=== PATIENT | female | born 1935 | race Caucasian/White ===

== ENCOUNTER 2021-06-03 17:43 | Inpatient (IN) | payer MEDICARE, OTHER ==
[~2021-06-03] VITALS: Ht 162.6 cm; Wt 83.0 kg
--- NOTE | 2021-06-03 17:50 | NUR ---
TO ER BED 5, SENT BY PMD DUE TO ASTHMA EXACERBATION, ALBUTEROL GIVEN BEFORE ARRIVAL,CALM AND NOT IN RESPIRATORY DISTRESS, ATTACHED TO MONITOR, MD AT BEDSIDE FOR EVAL
[2021-06-03] MEDS ORDERED: ALBUTEROL FS 2.5 MG/3 ML VIAL.NEB ONE (18:00)
[2021-06-03] MEDS ORDERED: ALBUTEROL FS 2.5 MG/3 ML VIAL.NEB NEB ONE (18:00)
[2021-06-03] MEDS ORDERED: IPRATROPIUM NEB FS 0.5 MG/2.5 ML AMPUL.NEB NEB ONE (18:00)
[2021-06-03] MEDS ORDERED: methylPREDNISolone SOD SUCC 125 MG/2ML VIAL IV ONE (18:00)
[2021-06-03] MEDS ORDERED: IPRATROPIUM NEB FS 0.5 MG/2.5 ML AMPUL.NEB ONE (18:00)
--- NOTE | 2021-06-03 18:05 | NUR ---
RT AT BEDSIDE FOR BREATHING TREATMENT
[2021-06-03] MEDS ORDERED: methylPREDNISolone SOD SUCC 125 MG/2ML VIAL ONE (18:08)
--- NOTE | 2021-06-03 18:13 | NUR ---
COVID SWAB DONE AND SENT TO THE LAB
--- NOTE | 2021-06-03 18:14 | NUR ---
SAMPLER AND TEST PREPARER AT BEDSIDE
--- NOTE | 2021-06-03 18:17 | NUR ---
UNABLE TO GIVE URINE AT THIS TIME
[2021-06-03 18:20] LABS: BASOPHILS % (AUTO) 0.2 % (0.0-2.0); EOSINOPHILS % (AUTO) 0.1 % (0.0-6.0); HEMATOCRIT 35 % (33-45); HEMOGLOBIN 11.8 g/dL (11.5-14.8); LYMPHOCYTES # (AUTO) 2.1 K/uL (0.8-4.8); MEAN CORPUSCULAR HGB CONC 33 g/dl (31.0-36.0); MEAN CORPUSCULAR VOLUME 94 fL (82-100); MONOCYTES # (AUTO) 0.7 K/uL (0.1-1.30); NEUTROPHILS % (AUTO) 80.7 % (43.0-81.0); PLATELET COUNT (AUTO) 256 K/uL (150-450); RED BLOOD CELL COUNT(AUTO) 3.77 MIL/uL (4.0-5.2); WHITE BLOOD COUNT (AUTO) 14.9 K/uL (4.3-11.0)
--- NOTE | 2021-06-03 18:34 | NUR ---
AISLINN- DAUGHTER [phone]
[2021-06-03 18:36] LABS: CALCIUM, SERUM 8.1 mg/dL (8.5-10.1)
[2021-06-03 18:43] LABS: ALBUMIN 3.6 g/dL (3.4-5.0); BILIRUBIN,DIRECT 0.1 mg/dL (0.0-0.2); BILIRUBIN,TOTAL 0.2 mg/dL (0.2-1.0); TOTAL PROTEIN, SERUM 7.6 g/dL (6.4-8.2)
[2021-06-03] MEDS ORDERED: ASPI-1420 PO (19:14)
[2021-06-03] MEDS ORDERED: CHOL100062 PO (19:14)
[2021-06-03] MEDS ORDERED: ACET-2605 PO (19:14)
[2021-06-03] MEDS ORDERED: DOCU-141 PO (19:14)
[2021-06-03] MEDS ORDERED: LOPE2CAP14 PO (19:14)
[2021-06-03] MEDS ORDERED: GUAI100S11 PO (19:14)
[2021-06-03] MEDS ORDERED: SPIR25TA PO (19:14)
[2021-06-03] MEDS ORDERED: ONDA4TAB5 PO (19:14)
[2021-06-03] MEDS ORDERED: ATOR40TA PO (19:14)
[2021-06-03] MEDS ORDERED: INSU100V27 SQ (19:14)
[2021-06-03] MEDS ORDERED: INSU100V39 SQ (19:14)
[2021-06-03] MEDS ORDERED: BLOO-668 IN (19:14)
[2021-06-03] MEDS ORDERED: FAMO20TA8 PO (19:14)
[2021-06-03] MEDS ORDERED: NEBI10TA2 PO (19:14)
[2021-06-03] MEDS ORDERED: INSU100V7 SQ ×2 (19:14)
[2021-06-03] MEDS ORDERED: FLUT1BLS11 IH (19:14)
[2021-06-03] MEDS ORDERED: HYDR100T27 PO (19:14)
[2021-06-03] MEDS ORDERED: BENZ-13 PO (19:14)
[2021-06-03] MEDS ORDERED: POLY17PO4 PO (19:14)
[2021-06-03] MEDS ORDERED: FLUO60SO3 TP (19:14)
[2021-06-03] MEDS ORDERED: GLUC1KIT IM (19:14)
[2021-06-03] MEDS ORDERED: FURO40TA5 PO (19:14)
[2021-06-03] MEDS ORDERED: ALBU8.5H8 IH (19:14)
[2021-06-03] MEDS ORDERED: MECL-159 PO (19:14)
[2021-06-03] MEDS ORDERED: GLY/85CR TP (19:14)
[2021-06-03] MEDS ORDERED: MOME17SP (19:14)
[2021-06-03] MEDS ORDERED: POLY15DR40 EACHEYE (19:14)
[2021-06-03] MEDS ORDERED: ALBU1.257 IH (19:14)
[2021-06-03] MEDS ORDERED: MONT10TA22 PO (19:14)
[2021-06-03] MEDS ORDERED: OLME40TA12 PO (19:14)
[2021-06-03] MEDS ORDERED: METH5TAB70 PO (19:14)
[2021-06-03] MEDS ORDERED: NIFE-35 PO (19:14)
[2021-06-03] MEDS ORDERED: CARB100T51 PO (19:14)
--- NOTE | 2021-06-03 19:15 | NUR ---
CALLED [facility]. MOY TOBAR WAS PAGED.
[2021-06-03] MEDS ORDERED: LEVOFLOXACIN 750 MG /D5W 150ML 150 ML IV ONE ×2 (19:30→19:40)
[2021-06-03] MEDS ORDERED: ACETAMINOPHEN ES 500 MG TABLET PO PRN (21:30)
[2021-06-03] MEDS ORDERED: IV NS 0.9% 1,000 ML IV PRN (21:30)
[2021-06-03] MEDS ORDERED: ZOLPIDEM TARTRATE 5 MG TABLET PO PRN (21:30)
[2021-06-03] MEDS ORDERED: BENZONATATE 100 MG CAPSULE PO PRN (21:30)
[2021-06-03] MEDS ORDERED: ONDANSETRON HCL/PF 4 MG/2 ML VIAL IVP PRN (21:30)
[2021-06-03] MEDS ORDERED: MAG HYDROX/AL HYDROX/SIMETH 30 ML UDC PO PRN (21:30)
[2021-06-03] MEDS ORDERED: MAGNESIUM HYDROXIDE 30 ML UDC PO PRN (21:30)
[2021-06-03] MEDS ORDERED: DEXTROSE 50%-WATER 50 ML DISP.SYRIN IV PRN (21:30)
[2021-06-03] MEDS ORDERED: Z GUARD REMEDY 2 OZ OINT TP PRN (21:30)
[2021-06-03] MEDS: MOMETASONE FUROATE NASAL SUSP 17 GM BOTTLE SCH (22:00)
--- NOTE | 2021-06-03 22:21 | NUR ---
MARLENE FROM [facility] GIVES AUTH TO ADMIT AUTH NUMBER [id number].
--- NOTE | 2021-06-03 22:39 | NUR ---
TELE 106
--- NOTE | 2021-06-03 22:51 | NUR ---
called to give report nurse not ready and will call back
--- NOTE | 2021-06-03 23:02 | NUR ---
GAVE REPORT TO ROXANNE
--- NOTE | 2021-06-03 23:17 | NUR ---
PT TRANSFERED PER ACLS PROTOCOL
[2021-06-03] MEDS ORDERED: ALBUTEROL FS 2.5 MG/3 ML VIAL.NEB NEB PRN (23:45)
[2021-06-04] MEDS: ACETYLCYSTEINE 10% SOLN 400 MG/4 ML VIAL NEB SCH ×3 (00:36→14:48)
[2021-06-04] MEDS: IPRATROPIUM NEB FS 0.5 MG/2.5 ML AMPUL.NEB NEB SCH ×4 (00:36→19:30)
[2021-06-04] MEDS: ALBUTEROL FS 2.5 MG/3 ML VIAL.NEB NEB SCH ×4 (00:36→20:12)
[2021-06-04] MEDS: methylPREDNISolone SOD SUCC 40 MG/ML VIAL IV SCH ×5 (00:57→23:01)
[2021-06-04] MEDS: BLOOD SUGAR DIAGNOSTIC 1 EACH STRIP VI SCH ×5 (01:02→21:15)
[2021-06-04] MEDS: *INSULIN REGULAR(HUMULIN R)HUM 100 UNIT/ML VIAL SQ PRN ×2 (01:08→21:16)
[2021-06-04] MEDS: ENOXAPARIN SODIUM 40 MG/0.4 ML DISP.SYRIN SQ SCH ×2 (01:16→21:01)
[2021-06-04] MEDS: ATORVASTATIN 40 MG TABLET PO SCH ×2 (01:17→21:00)
[2021-06-04] MEDS ORDERED: hydrALAZINE HCL 50 MG TABLET ONE (05:11)
[2021-06-04] MEDS: hydrALAZINE HCL 50 MG TABLET PO SCH ×3 (05:20→16:21)
--- NOTE | 2021-06-04 05:21 | NUR ---
called vida TOBAR made aware pts B/P 188/65 hr 90 patient states she didn't take her blood pressure yesterday stated it was ikat to give the AM 9:00 Apresoline 100 mg early (now)
--- NOTE | 2021-06-04 06:20 | NUR ---
with assist will use the bedside commode, freq voids SOB when getting OOB and movement calms down when stops to rest 02 at 2 liters sats 90 - 93% Blood pressure running High called Moniciamee K[place]omin[place] and apresoline 100 mg given early this AM
[2021-06-04 06:38] LABS: BASOPHILS % (AUTO) 0.1 % (0.0-2.0); HEMATOCRIT 35 % (33-45); HEMOGLOBIN 11.7 g/dL (11.5-14.8); LYMPHOCYTES # (AUTO) 1.2 K/uL (0.8-4.8); LYMPHOCYTES % (AUTO) 7.8 % (20.0-44.0); MEAN CORPUSCULAR HGB CONC 34 g/dl (31.0-36.0); MEAN CORPUSCULAR VOLUME 94 fL (82-100); MONOCYTES # (AUTO) 0.4 K/uL (0.1-1.30); MONOCYTES % (AUTO) 2.6 % (2.0-12.0); NEUTROPHILS # (AUTO) 13.4 K/uL (1.8-8.9); NEUTROPHILS % (AUTO) 89.5 % (43.0-81.0); PLATELET COUNT (AUTO) 240 K/uL (150-450); RED BLOOD CELL COUNT(AUTO) 3.72 MIL/uL (4.0-5.2); WHITE BLOOD COUNT (AUTO) 14.9 K/uL (4.3-11.0)
[2021-06-04 07:10] LABS: CALCIUM, SERUM 8.6 mg/dL (8.5-10.1); CREATININE 0.9 mg/dL (0.6-1.3); MAGNESIUM 2.4 mg/dL (1.8-2.4); PHOSPHORUS 3.5 mg/dL (2.5-4.9); POTASSIUM 4.1 mmol/L (3.5-5.1)
[2021-06-04 08:00] VITALS: BP 165/83
--- NOTE | 2021-06-04 08:00 | NUR ---
LICENSED PROFESSIONAL COUNSELOR NOTE PATIENT IN BED ALL NEEDS ATTENDED,ON 4L NC SATURATION 93% AT THIS TIME, LT HAND HL IS SWOLLEN REMOVED HL KEEP ELEVATED , REPORTED TO DR PINEDA ALSO NOTOFIED THAT PATENT IS VERY CONGESTED ,ORDERED 40 MG PO LASIX NOW AND LATTER WHEN IV HL WILL BE AVAILABLE LASIX IV Addendum: 06/04/21 at 1354 by BENJMAÍN FRANCISCO RN received patient on ivf ns at 75 ml per hour reported to dr jina arboleda is very congested
--- NOTE | 2021-06-04 08:05 | NUR ---
ms rn note ivf stopped due to patient is very congested ok with nilo muro
[2021-06-04] MEDS ORDERED: CLONIDINE HCL 0.1 MG TABLET PO PRN (08:30)
--- NOTE | 2021-06-04 08:38 | NUR ---
RN NOTE PATIENT IN BED WITH SOB NOTED WITH CHEST CONGESTED Addendum: 06/04/21 at 1350 by BENJAMÍN FRANCISCO RN dr copeland at bedside notified that patient very congested,stated cont on 4l nc
[2021-06-04] MEDS: CHOLECALCIFEROL 1,000 UNIT TABLET (VIT D3) PO SCH (08:49)
[2021-06-04] MEDS: MONTELUKAST SODIUM (10MG) 10 MG TABLET PO SCH (08:50)
[2021-06-04] MEDS: FAMOTIDINE (20 MG) 20 MG TABLET PO SCH (08:50)
[2021-06-04] MEDS: LOSARTAN POTASSIUM 50 MG TABLET PO SCH (08:52)
[2021-06-04] MEDS: METOPROLOL TARTRATE 50 MG TABLET PO SCH ×2 (08:53→20:58)
[2021-06-04] MEDS: ASPIRIN EC 81 MG TABLET.DR PO SCH (08:54)
[2021-06-04] MEDS: DOCUSATE SODIUM 100 MG CAPSULE PO SCH ×2 (08:55→16:21)
[2021-06-04] MEDS: POLYVINYL ALCOHOL 15 ML BOTTLE OP SCH ×4 (08:56→20:59)
[2021-06-04] MEDS: POLYETHYLENE GLYCOL 3350 17 GM POWD.PACK PO SCH (08:56)
[2021-06-04] MEDS: NIFEdipine XL (30MG) 30 MG TAB PO SCH (08:56)
[2021-06-04] MEDS ORDERED: FLUOCINONIDE 0.05% SOLN 60 ML BOTTLE TP SCH (09:00)
[2021-06-04] MEDS ORDERED: FLUTICASONE/SALMETEROL 1 DISK IH SCH (09:00)
[2021-06-04] MEDS ORDERED: FLUTICASONE/VILANTEROL 1 EACH BLST.W.DEV IH SCH (09:00)
[2021-06-04] MEDS ORDERED: FUROSEMIDE 40 MG TABLET PO ONE (09:00)
[2021-06-04] MEDS ORDERED: CARBAMAZEPINE XR 100 MG TAB.SR.12H PO SCH (09:00)
--- NOTE | 2021-06-04 09:00 | NUR ---
ms rn note unable to insert iv hl .patient hard stick ,nursing supervisor carding notified that per dr jina knowles to insert mid line
[2021-06-04] MEDS: METHIMAZOLE (5MG) 5 MG TABLET PO SCH (09:02)
[2021-06-04] MEDS: INSULIN GLARGINE, 100 UNIT/ML CARTRIDGE SQ SCH (09:05)
[2021-06-04] MEDS: INSULIN REGULAR, HUMAN 100 UNIT/ML 3 ML VIAL SQ PRN ×3 (09:07→16:44)
[2021-06-04] MEDS ORDERED: GUAIFENESIN LA 600 MG TABLET.SA PO SCH (10:00)
--- NOTE | 2021-06-04 10:07 | NUR ---
WOUND CARE CONSULT: REVIEWED CHART, NURSING DOCUMENTATION AND PHOTOS WHICH INDICATE LOWER LEG REDNESS WITH WEEPING EDEMA, PRESENT ON ADMISSION. DR GOMES NOTIFIED OF DPM CONSULT REQUEST. RECOMMENDATIONS MADE FOR SKIN PROTECTION. DISCUSSED WITH NURSING STAFF. IN AGREEMENT WITH PLAN OF CARE. CURRENT JHONATHAN SCORE IS 17.
[2021-06-04] MEDS ORDERED: FUROSEMIDE 40 MG/4 ML VIAL IV STA (10:37)
--- NOTE | 2021-06-04 10:55 | NUR ---
MS RN NOTE LASIX 40 MG IBP GIVEN ,CHEST X RAY DONE
--- NOTE | 2021-06-04 10:55 | NUR ---
ms rn note charge nurse at bedside, able to insert rt hand severiano 24 hl
[2021-06-04] MEDS ORDERED: ALBUTEROL FS 2.5 MG/3 ML VIAL.NEB NEB PRN (11:30)
--- NOTE | 2021-06-04 13:14 | NUR ---
telesales representative note assisted to bsc, urinted 1200 ml of yellow clear urine, mid line inserted on lt arm ,gage18
--- NOTE | 2021-06-04 14:51 | NUR ---
MS RN NOTE ASSISTED TO BSC ABLE TO MAKE BM AND URINATE 300 ML, WILL CONT TO MONITOR
[2021-06-04 16:03] VITALS: BP 152/87
--- NOTE | 2021-06-04 17:20 | NUR ---
ms rn note having dinner , able to eat self , all needs attended, call light within reach
--- NOTE | 2021-06-04 18:57 | NUR ---
MS RN NOTE RESTING COMFORTABLY IN BED ALL NEEDS ATTENDED KEEP CLEAN DRY , WILL CONT TO MONITOR , CONT ON 4L NC NO SOB NOTED AT THIS TIME
--- NOTE | 2021-06-04 19:45 | NUR ---
RN NOTE RECEIVED PT ALERT AND ORIENTED X4. ON O2 AT 4L. NO SIGNS OF DISTRESS NOTED. PT DENIES ANY SOB OR PAIN. HOB ELEVATED. PT IV ON RHAND AND ERROL MIDLINE PATENT AND INTACT. ALL SAFETY MEASURES IN PLACE PER PROTOCOL. WILL CONTINUE TO MONITOR.
[2021-06-04 20:00] VITALS: BP 164/76
[2021-06-04] MEDS: CARBAMAZEPINE 200 MG TABLET PO SCH (20:58)
[2021-06-04] MEDS: MOMETASONE FUROATE NASAL SUSP 17 GM BOTTLE SCH (21:01)
--- NOTE | 2021-06-04 22:00 | NUR ---
RN NOTE PT COMPLAINS OF SOB. NO APPARENT DISTRESS NOTED. ON O2 AT 4L SATING 94-95%. PT NOT RECEIVING ANY BREATHING TX DUE TO PCR STILL PENDING. BRATTICE BUILDER RADHA BEVERLY NOTIFIED. WITH NEW ORDER OF ALBUTEROL PUFF. PT REFUSED TO HAVE THE ALBUTEROL PUFF. KEPT HOB ELEVATED. WILL CONTINUE TO MONITOR.
[2021-06-05 04:00] VITALS: BP 132/86
[2021-06-05] MEDS: ALBUTEROL FS 2.5 MG/3 ML VIAL.NEB NEB SCH ×4 (04:37→21:00)
[2021-06-05] MEDS: IPRATROPIUM NEB FS 0.5 MG/2.5 ML AMPUL.NEB NEB SCH ×6 (04:37→22:39)
[2021-06-05] MEDS: methylPREDNISolone SOD SUCC 40 MG/ML VIAL IV SCH ×4 (05:26→23:08)
--- NOTE | 2021-06-05 06:55 | NUR ---
RN NOTE PT AWAKE IN BED, CONTINUE ON 4L O2. WITH EPISODES OF SOB, KEPT HOB ELEVATED. PT NOTED WITH PRODUCTIVE COUGH WITH MINIMAL SECRETIONS. NOT IN ANY DISTRESS. DENIES ANY PAIN AT THIS TIME. PT CONTINENT, ASSISTED TO BEDSIDE COMMODE. ALL NEEDS ATTENDED. ON FREQUENT VISUAL CHECKS. ALL SAFETY MEASURES MAINTAINED. WILL ENDORSE TO NEXT SHIFT NURSE FOR YASIR.
[2021-06-05] MEDS: ACETYLCYSTEINE 10% SOLN 400 MG/4 ML VIAL NEB SCH ×3 (07:35→22:40)
[2021-06-05] MEDS: BLOOD SUGAR DIAGNOSTIC 1 EACH STRIP VI SCH ×4 (07:37→22:05)
[2021-06-05] MEDS: *INSULIN REGULAR(HUMULIN R)HUM 100 UNIT/ML VIAL SQ PRN ×2 (07:55→21:59)
[2021-06-05] MEDS: METHIMAZOLE (5MG) 5 MG TABLET PO SCH (08:15)
[2021-06-05] MEDS: LEVOFLOXACIN 750 MG /D5W 150ML 750 MG in PREMIX 1 EA IV SCH (08:15)
[2021-06-05] MEDS: CHOLECALCIFEROL 1,000 UNIT TABLET (VIT D3) PO SCH (08:16)
[2021-06-05] MEDS: ASPIRIN EC 81 MG TABLET.DR PO SCH (08:16)
[2021-06-05] MEDS: DOCUSATE SODIUM 100 MG CAPSULE PO SCH ×2 (08:16→17:03)
[2021-06-05] MEDS: FAMOTIDINE (20 MG) 20 MG TABLET PO SCH (08:17)
[2021-06-05] MEDS: NIFEdipine XL (30MG) 30 MG TAB PO SCH (08:17)
[2021-06-05] MEDS: METOPROLOL TARTRATE 50 MG TABLET PO SCH ×2 (08:18→21:44)
[2021-06-05] MEDS: LOSARTAN POTASSIUM 50 MG TABLET PO SCH (08:18)
[2021-06-05] MEDS: MONTELUKAST SODIUM (10MG) 10 MG TABLET PO SCH (08:18)
[2021-06-05] MEDS: POLYETHYLENE GLYCOL 3350 17 GM POWD.PACK PO SCH ×2 (08:18→09:00)
[2021-06-05] MEDS: hydrALAZINE HCL 50 MG TABLET PO SCH ×3 (08:19→17:04)
[2021-06-05] MEDS: INSULIN GLARGINE, 100 UNIT/ML CARTRIDGE SQ SCH (08:53)
[2021-06-05] MEDS: CARBAMAZEPINE 200 MG TABLET PO SCH ×2 (08:53→21:38)
[2021-06-05] MEDS: POLYVINYL ALCOHOL 15 ML BOTTLE OP SCH ×4 (08:55→21:45)
[2021-06-05 09:50] LABS: BASOPHILS % (AUTO) 0.1 % (0.0-2.0); HEMATOCRIT 38 % (33-45); HEMOGLOBIN 12.4 g/dL (11.5-14.8); LYMPHOCYTES # (AUTO) 1.4 K/uL (0.8-4.8); LYMPHOCYTES % (AUTO) 7.6 % (20.0-44.0); MEAN CORPUSCULAR HGB CONC 33 g/dl (31.0-36.0); MEAN CORPUSCULAR VOLUME 95 fL (82-100); MONOCYTES # (AUTO) 0.9 K/uL (0.1-1.30); MONOCYTES % (AUTO) 4.9 % (2.0-12.0); NEUTROPHILS # (AUTO) 16.8 K/uL (1.8-8.9); NEUTROPHILS % (AUTO) 87.4 % (43.0-81.0); PLATELET COUNT (AUTO) 267 K/uL (150-450); WHITE BLOOD COUNT (AUTO) 19.2 K/uL (4.3-11.0)
[2021-06-05 10:17] LABS: CALCIUM, SERUM 8.9 mg/dL (8.5-10.1); CREATININE 1.2 mg/dL (0.6-1.3); MAGNESIUM 2.6 mg/dL (1.8-2.4); POTASSIUM 3.9 mmol/L (3.5-5.1)
[2021-06-05] MEDS: INSULIN REGULAR, HUMAN 100 UNIT/ML 3 ML VIAL SQ PRN ×2 (11:49→17:26)
[2021-06-05 12:00] VITALS: BP 187/76
[2021-06-05] MEDS: ALBUTEROL SULFATE 8 GM HFA.AER.AD IH PRN ×2 (13:53→22:30)
[2021-06-05 16:00] VITALS: BP 166/64
--- NOTE | 2021-06-05 18:46 | NUR ---
RN NOTES PT RESTING COMFORTABLY IN BED WITH NO S/SX OF RESPIRATORY OR SOB AT THIS TIME. PT IS ON 4L NASAL CANNULA. ALL NEEDS ATTENDED AT THIS TIME WITH BED IN LOWEST LOCKED POSITION, SIDE RAILS UP X2 AND CALL LIGHT WITHIN REACH.
[2021-06-05 20:00] VITALS: BP 157/60
--- NOTE | 2021-06-05 20:00 | NUR ---
RN NOTE RECEIVED PT IN BED, AWAKE WATCHING TV. ALERT AND ORIENTED X4. ON 4L NC. COMPLAINS OF SOB, NO DISTRESS NOTED. KEPT HOB ELEVATED. NOTED WITH COUGHING AND CONGESTION, OFFERED COUGH MED PT REFUSED. PT CONTINENT, ASSISTED TO BEDSIDE COMMODE. PT DENIES ANY PAIN AT THIS TIME. ALL SAFETY MEASURES IN PLACE. WILL CONTINUE TO MONITOR.
--- NOTE | 2021-06-05 20:12 | NUR ---
RT neb tx not given. pending pcr.
--- NOTE | 2021-06-05 21:00 | NUR ---
RN NOTE PT PCR STILL PENDING, FOLLOWED UP WITH LAB, NO RESULTS YET. PT SON CONCERNED REGARDING BREATHING TREATMENT HOLDING. EXPLAINED, PT GETTING INH ALBUTEROL PUFF. WASH OPERATOR RADHA BEVERLY MADE AWARE.
[2021-06-05] MEDS: ATORVASTATIN 40 MG TABLET PO SCH (21:38)
[2021-06-05] MEDS: ENOXAPARIN SODIUM 40 MG/0.4 ML DISP.SYRIN SQ SCH (21:43)
[2021-06-05] MEDS: MOMETASONE FUROATE NASAL SUSP 17 GM BOTTLE SCH (21:46)
[2021-06-06] MEDS: ALBUTEROL FS 2.5 MG/3 ML VIAL.NEB NEB SCH ×6 (01:00→23:51)
[2021-06-06] MEDS: ALBUTEROL SULFATE 8 GM HFA.AER.AD IH PRN ×2 (02:47→06:49)
[2021-06-06] MEDS: IPRATROPIUM NEB FS 0.5 MG/2.5 ML AMPUL.NEB NEB SCH ×6 (03:30→23:51)
[2021-06-06 04:00] VITALS: BP 168/66
--- NOTE | 2021-06-06 04:16 | NUR ---
RN NOTE NOTED WITH ELEVATED BP 168/66. PT DENIES ANY PAIN. NO DISTRESS NOTED. CLONIDINE 0.1MG GIVEN ORDERED. WILL CONTINUE TO MONITOR.
[2021-06-06] MEDS: methylPREDNISolone SOD SUCC 40 MG/ML VIAL IV SCH ×3 (05:14→17:11)
[2021-06-06 06:14] LABS: BASOPHILS % (AUTO) 0.2 % (0.0-2.0); HEMATOCRIT 34 % (33-45); HEMOGLOBIN 11.4 g/dL (11.5-14.8); LYMPHOCYTES # (AUTO) 1.4 K/uL (0.8-4.8); MEAN CORPUSCULAR HGB CONC 33 g/dl (31.0-36.0); MEAN CORPUSCULAR VOLUME 95 fL (82-100); MONOCYTES # (AUTO) 0.8 K/uL (0.1-1.30); MONOCYTES % (AUTO) 5.9 % (2.0-12.0); NEUTROPHILS % (AUTO) 83.9 % (43.0-81.0); PLATELET COUNT (AUTO) 260 K/uL (150-450); RED BLOOD CELL COUNT(AUTO) 3.63 MIL/uL (4.0-5.2); WHITE BLOOD COUNT (AUTO) 14.3 K/uL (4.3-11.0)
--- NOTE | 2021-06-06 07:10 | NUR ---
RN NOTES NO SIGNIFICANT CHANGES DURING SHIFT. PATIENT AOX4. ABLE TO MAKE NEEDS KNOWN. BREATHING EVEN AND UNLABORED. EPISODE OF SOB AND CONGESTION NOTED. NO DISTRESS. ALBUTEROL PUFF GIVEN NEEDED. SKIN WARM AND DRY TO TOUCH. AFEBRILE. PATIENT WITH IV ACCESS ON WILLIAMS. PATENT, NO S/S OF INFECTION NOTED. BLOOD PRESSURE DECREASED TO 140/70. DENIES PAIN AT THIS TIME. ASSISTED ADL'S. KEPT CLEAN AND DRY. CALL LIGHT WITHIN REACH. WILL ENDORSE TO NEXT SHIFT.
[2021-06-06 07:24] LABS: CALCIUM, SERUM 8.7 mg/dL (8.5-10.1); CREATININE 1.1 mg/dL (0.6-1.3); MAGNESIUM 2.7 mg/dL (1.8-2.4); PHOSPHORUS 3.7 mg/dL (2.5-4.9); POTASSIUM 4.2 mmol/L (3.5-5.1)
[2021-06-06] MEDS: BLOOD SUGAR DIAGNOSTIC 1 EACH STRIP VI SCH ×4 (07:52→22:09)
[2021-06-06] MEDS: INSULIN GLARGINE, 100 UNIT/ML CARTRIDGE SQ SCH (08:14)
[2021-06-06] MEDS: INSULIN REGULAR, HUMAN 100 UNIT/ML 3 ML VIAL SQ PRN ×3 (08:15→17:16)
[2021-06-06] MEDS: METHIMAZOLE (5MG) 5 MG TABLET PO SCH (08:16)
[2021-06-06] MEDS: LOSARTAN POTASSIUM 50 MG TABLET PO SCH (08:17)
[2021-06-06] MEDS: ASPIRIN EC 81 MG TABLET.DR PO SCH (08:18)
[2021-06-06] MEDS: hydrALAZINE HCL 50 MG TABLET PO SCH ×3 (08:18→17:11)
[2021-06-06] MEDS: DOCUSATE SODIUM 100 MG CAPSULE PO SCH ×2 (08:18→17:10)
[2021-06-06] MEDS: FAMOTIDINE (20 MG) 20 MG TABLET PO SCH (08:19)
[2021-06-06] MEDS: CHOLECALCIFEROL 1,000 UNIT TABLET (VIT D3) PO SCH (08:19)
[2021-06-06] MEDS: CARBAMAZEPINE 200 MG TABLET PO SCH ×2 (08:19→21:38)
[2021-06-06] MEDS: NIFEdipine XL (30MG) 30 MG TAB PO SCH (08:19)
[2021-06-06] MEDS: MONTELUKAST SODIUM (10MG) 10 MG TABLET PO SCH (08:19)
[2021-06-06] MEDS: METOPROLOL TARTRATE 50 MG TABLET PO SCH ×2 (08:20→21:00)
[2021-06-06] MEDS: POLYVINYL ALCOHOL 15 ML BOTTLE OP SCH ×4 (08:20→21:56)
[2021-06-06] MEDS: POLYETHYLENE GLYCOL 3350 17 GM POWD.PACK PO SCH (09:00)
[2021-06-06] MEDS: GLUCERNA SHAKE 237 ML CAN PO SCH (09:00)
[2021-06-06] MEDS: ACETYLCYSTEINE 10% SOLN 400 MG/4 ML VIAL NEB SCH ×3 (09:16→23:51)
[2021-06-06 10:00] VITALS: BP 161/85
[2021-06-06 12:00] VITALS: BP 173/65
[2021-06-06 16:00] VITALS: BP 157/46
--- NOTE | 2021-06-06 18:27 | NUR ---
RN NOTES NO SIGNIFICANT CHANGES DURING SHIFT. PT RECEIVED NEBULIZER TX AT 1130 AFTER CONFIRMED NEGATIVE COVID PCR RESULTS CAME IN. PT AMBULATED TO THE BATHROOM AND SAT IN CHAIR AT BEDSIDE. PT RESTING COMFORTABLY IN BED IN HIGH FOWLERS POSITION ON 3L NASAL CANULA. SAFETY MEASURES IN PLACE WITH SIDE RAILS UP X2, BED IN LOWEST LOCKED POSITION AND CALL LIGHT WITHIN REACH.
[2021-06-06 20:00] VITALS: BP 91/43
--- NOTE | 2021-06-06 20:00 | NUR ---
ms rn notes RECEIVED PTS IN BED IN SEMI FOWLERS POSITION . A/OX4. ABLE TO MAKE NEEDS KNOWN.ON O2 AT 4LITERS VIA NC SATING 93% BREATHING EVEN AND UNLABORED. NO DISTRESS. SKIN WARM AND DRY TO TOUCH. PATIENT WITH IV ACCESS ON WILLIAMS.ML INTACT PATENT, DENIES PAIN AT THIS TIME. ALL NEEDS ATTENDED TOO CALL LIGHT WITHIN REACH . ASSISTED ADL'S. KEPT CLEAN AND DRY. CALL LIGHT WITHIN REACH. BED IN LOW LOCKED POSITIONED ,WILL CONTINUE TO MONITOR PTS.
--- NOTE | 2021-06-06 21:30 | NUR ---
MS RN NOTES DUE MEDS GIVEN ORDERED LOPRESSOR NOT GIVEN DUE BLOOD PRESSURE 91/43 , WILL CONTINUE TO MONITOR PTS RECHECK BP AT 11PM BP 105/55
[2021-06-06] MEDS: ATORVASTATIN 40 MG TABLET PO SCH (21:38)
[2021-06-06] MEDS: ACETAMINOPHEN 325 MG TABLET PO PRN (21:38)
[2021-06-06] MEDS: ENOXAPARIN SODIUM 40 MG/0.4 ML DISP.SYRIN SQ SCH (21:55)
[2021-06-06] MEDS: MOMETASONE FUROATE NASAL SUSP 17 GM BOTTLE SCH (21:59)
--- NOTE | 2021-06-06 22:00 | NUR ---
MS RN NOTES BLOOD SUGAR AT 10PM IS 407 MG/DL 10 UNITS OF REGULAR INSULIN GIVE PER SLIDING SCALE MD WASHINGTON MADE AWARE WITH NNO . PTS IS CURRENTLY ON SOLUMEDROL 80MG Q 6HRS WILL CHECK BLOOD SUGAR IN AM .
[2021-06-06] MEDS: *INSULIN REGULAR(HUMULIN R)HUM 100 UNIT/ML VIAL SQ PRN (22:07)
[2021-06-07] MEDS: methylPREDNISolone SOD SUCC 40 MG/ML VIAL IV SCH ×5 (01:33→23:58)
[2021-06-07] MEDS: ALBUTEROL FS 2.5 MG/3 ML VIAL.NEB NEB SCH ×6 (03:22→23:03)
[2021-06-07] MEDS: IPRATROPIUM NEB FS 0.5 MG/2.5 ML AMPUL.NEB NEB SCH ×6 (03:22→23:03)
[2021-06-07 04:00] VITALS: BP 116/59
[2021-06-07] MEDS: ACETAMINOPHEN 325 MG TABLET PO PRN (06:31)
[2021-06-07 06:54] LABS: BASOPHILS % (AUTO) 0.1 % (0.0-2.0); HEMATOCRIT 35 % (33-45); HEMOGLOBIN 11.8 g/dL (11.5-14.8); LYMPHOCYTES # (AUTO) 0.9 K/uL (0.8-4.8); LYMPHOCYTES % (AUTO) 9.6 % (20.0-44.0); MEAN CORPUSCULAR HGB CONC 34 g/dl (31.0-36.0); MEAN CORPUSCULAR VOLUME 95 fL (82-100); MONOCYTES # (AUTO) 0.6 K/uL (0.1-1.30); MONOCYTES % (AUTO) 6.3 % (2.0-12.0); NEUTROPHILS # (AUTO) 7.8 K/uL (1.8-8.9); PLATELET COUNT (AUTO) 234 K/uL (150-450); RED BLOOD CELL COUNT(AUTO) 3.71 MIL/uL (4.0-5.2); WHITE BLOOD COUNT (AUTO) 9.2 K/uL (4.3-11.0)
[2021-06-07 07:12] LABS: CALCIUM, SERUM 8.6 mg/dL (8.5-10.1); CREATININE 1.2 mg/dL (0.6-1.3); PHOSPHORUS 3.6 mg/dL (2.5-4.9); POTASSIUM 4.2 mmol/L (3.5-5.1)
--- NOTE | 2021-06-07 07:15 | NUR ---
ms rn notes Pts is sitting in the chair at this time .no c/o of pain no sob noted .will endorse to [employer] [facility] day shift for continuity of care.
[2021-06-07] MEDS: BLOOD SUGAR DIAGNOSTIC 1 EACH STRIP VI SCH ×4 (07:34→21:33)
[2021-06-07] MEDS: INSULIN REGULAR, HUMAN 100 UNIT/ML 3 ML VIAL SQ PRN ×4 (07:35→17:36)
[2021-06-07 08:00] VITALS: BP 155/63
[2021-06-07] MEDS: FAMOTIDINE (20 MG) 20 MG TABLET PO SCH (08:10)
[2021-06-07] MEDS: LEVOFLOXACIN 750 MG /D5W 150ML 750 MG in PREMIX 1 EA IV SCH (08:10)
[2021-06-07] MEDS: MONTELUKAST SODIUM (10MG) 10 MG TABLET PO SCH (08:10)
[2021-06-07] MEDS: ASPIRIN EC 81 MG TABLET.DR PO SCH (08:11)
[2021-06-07] MEDS: hydrALAZINE HCL 50 MG TABLET PO SCH ×3 (08:11→17:37)
[2021-06-07] MEDS: LOSARTAN POTASSIUM 50 MG TABLET PO SCH (08:11)
[2021-06-07] MEDS: CHOLECALCIFEROL 1,000 UNIT TABLET (VIT D3) PO SCH (08:11)
[2021-06-07] MEDS: NIFEdipine XL (30MG) 30 MG TAB PO SCH (08:12)
[2021-06-07] MEDS: DOCUSATE SODIUM 100 MG CAPSULE PO SCH ×2 (08:12→17:37)
[2021-06-07] MEDS: CARBAMAZEPINE 200 MG TABLET PO SCH ×2 (08:12→21:16)
[2021-06-07] MEDS: METOPROLOL TARTRATE 50 MG TABLET PO SCH ×2 (08:12→21:16)
[2021-06-07] MEDS: METHIMAZOLE (5MG) 5 MG TABLET PO SCH (08:12)
[2021-06-07] MEDS: POLYETHYLENE GLYCOL 3350 17 GM POWD.PACK PO SCH (08:13)
[2021-06-07] MEDS: INSULIN GLARGINE, 100 UNIT/ML CARTRIDGE SQ SCH ×2 (08:13→21:35)
[2021-06-07] MEDS: ACETYLCYSTEINE 10% SOLN 400 MG/4 ML VIAL NEB SCH ×3 (08:21→23:03)
[2021-06-07] MEDS: POLYVINYL ALCOHOL 15 ML BOTTLE OP SCH ×4 (08:31→21:29)
[2021-06-07] MEDS: GLUCERNA SHAKE 237 ML CAN PO SCH (08:31)
--- NOTE | 2021-06-07 12:00 | NUR ---
KRISTIE NOTES CRITICAL GLUCOSE OF 516. NOTIFIED AND STAT GLUCOSE ORDERED. Addendum: 06/07/21 at 1905 by CATHY HANCOCK RN CRITICAL VALUE OF RANDOM GLUCOSE 559. NOTIFIED AND ORDERED ADDITIONAL COVERAGE. ONE TIME 16 UNITS HUMILIN GIVEN @1330 Addendum: 06/07/21 at 1935 by CATHY HANCOCK RN CORRECTION - ONE TIME DOSE HUMILIN INSULIN GIVE FOR POC GLUCOSE OF 516 WAS 16 UNITS. AFTER RANDOM GLUCOSE OF 559 ADDITIONAL COVERAGE OF 20UNITS HUMILIN INSULIN GIVEN PER DR. PINEDA.
[2021-06-07] MEDS ORDERED: INSULIN REGULAR, HUMAN 100 UNIT/ML 3 ML VIAL SQ ONE (14:30)
[2021-06-07 20:00] VITALS: BP 143/41
--- NOTE | 2021-06-07 20:00 | NUR ---
RN NOTE RECEIVED PT IN BED ALERT AND ORIENTED, ON O2 AT 4L. NOT IN ANY DISTRESS. PT DENIES ANY SOB OR PAIN AT THIS TIME. HOB ELEVATED. PT ABLE TO MAKE NEEDS KNOWN. WITH WILLIAMS MIDLINE, PATENT AND INTACT. WILL CONTINUE TO MONITOR. CALL LIGHT WITHIN REACH.
[2021-06-07] MEDS: ATORVASTATIN 40 MG TABLET PO SCH (21:16)
[2021-06-07] MEDS: ENOXAPARIN SODIUM 40 MG/0.4 ML DISP.SYRIN SQ SCH (21:17)
[2021-06-07] MEDS: MOMETASONE FUROATE NASAL SUSP 17 GM BOTTLE SCH (21:28)
[2021-06-07] MEDS: *INSULIN REGULAR(HUMULIN R)HUM 100 UNIT/ML VIAL SQ PRN (21:38)
[2021-06-08] MEDS: ALBUTEROL FS 2.5 MG/3 ML VIAL.NEB NEB SCH ×6 (03:02→23:36)
[2021-06-08] MEDS: IPRATROPIUM NEB FS 0.5 MG/2.5 ML AMPUL.NEB NEB SCH ×6 (03:02→23:36)
[2021-06-08 04:00] VITALS: BP 148/68
[2021-06-08] MEDS: methylPREDNISolone SOD SUCC 40 MG/ML VIAL IV SCH ×3 (05:45→17:17)
[2021-06-08 06:27] LABS: BASOPHILS % (AUTO) 0.1 % (0.0-2.0); HEMATOCRIT 36 % (33-45); LYMPHOCYTES # (AUTO) 1.2 K/uL (0.8-4.8); LYMPHOCYTES % (AUTO) 12.9 % (20.0-44.0); MEAN CORPUSCULAR HGB CONC 34 g/dl (31.0-36.0); MEAN CORPUSCULAR VOLUME 95 fL (82-100); MONOCYTES # (AUTO) 0.6 K/uL (0.1-1.30); MONOCYTES % (AUTO) 5.9 % (2.0-12.0); NEUTROPHILS # (AUTO) 7.7 K/uL (1.8-8.9); NEUTROPHILS % (AUTO) 81.1 % (43.0-81.0); PLATELET COUNT (AUTO) 238 K/uL (150-450); RED BLOOD CELL COUNT(AUTO) 3.78 MIL/uL (4.0-5.2); WHITE BLOOD COUNT (AUTO) 9.5 K/uL (4.3-11.0)
--- NOTE | 2021-06-08 06:30 | NUR ---
RN NOTE PT SLEEPING AROUSES EASILY. CONTINUE ON O2 THERAPY AT 4L. NOT IN ANY DISTRESS, DENIES SOB. REMAINS IN HIGH FOWLERS PTS COMFORT. DENIES ANY PAIN. ASSISTED TO BEDSIDE COMMODE, PT ABLE TO MAKE NEEDS KNOWN. ALL NEEDS WERE ATTENDED. NO S/SX OF HYPO/HYPERGLYCEMIA NOTED. CALL LIGHT WITHIN REACH AT ALL TIMES. WILL ENDORSE TO NEXT SHIFT NURSE FOR YASIR.
[2021-06-08 06:49] LABS: CALCIUM, SERUM 8.8 mg/dL (8.5-10.1); CREATININE 1.1 mg/dL (0.6-1.3); POTASSIUM 4.6 mmol/L (3.5-5.1)
[2021-06-08] MEDS: INSULIN REGULAR, HUMAN 100 UNIT/ML 3 ML VIAL SQ PRN ×3 (07:59→17:36)
[2021-06-08 08:00] VITALS: BP 175/63
--- NOTE | 2021-06-08 08:00 | NUR ---
RN Note: Pt received alert awake oriented X 3-4. On 4LPM O2 via NC, no breathing distress noted. Denies pain & discomfort. Safety measures observed. Encourage pt to use call light for assistance. Call light within reach. Continue to monitor.
[2021-06-08] MEDS: INSULIN GLARGINE, 100 UNIT/ML CARTRIDGE SQ SCH ×2 (08:01→22:06)
[2021-06-08] MEDS: BLOOD SUGAR DIAGNOSTIC 1 EACH STRIP VI SCH ×4 (08:01→22:00)
[2021-06-08] MEDS: ACETYLCYSTEINE 10% SOLN 400 MG/4 ML VIAL NEB SCH ×3 (08:12→23:36)
[2021-06-08] MEDS: ASPIRIN EC 81 MG TABLET.DR PO SCH (08:47)
[2021-06-08] MEDS: MONTELUKAST SODIUM (10MG) 10 MG TABLET PO SCH (08:47)
[2021-06-08] MEDS: DOCUSATE SODIUM 100 MG CAPSULE PO SCH ×2 (08:49→17:17)
[2021-06-08] MEDS: LOSARTAN POTASSIUM 50 MG TABLET PO SCH (08:49)
[2021-06-08] MEDS: CHOLECALCIFEROL 1,000 UNIT TABLET (VIT D3) PO SCH (08:49)
[2021-06-08] MEDS: NIFEdipine XL (30MG) 30 MG TAB PO SCH (08:50)
[2021-06-08] MEDS: hydrALAZINE HCL 50 MG TABLET PO SCH ×3 (08:50→17:19)
[2021-06-08] MEDS: METHIMAZOLE (5MG) 5 MG TABLET PO SCH (08:50)
[2021-06-08] MEDS: METOPROLOL TARTRATE 50 MG TABLET PO SCH ×2 (08:50→20:35)
[2021-06-08] MEDS: FAMOTIDINE (20 MG) 20 MG TABLET PO SCH (08:50)
[2021-06-08] MEDS: GLUCERNA SHAKE 237 ML CAN PO SCH (08:51)
[2021-06-08] MEDS: POLYETHYLENE GLYCOL 3350 17 GM POWD.PACK PO SCH (08:53)
[2021-06-08] MEDS: POLYVINYL ALCOHOL 15 ML BOTTLE OP SCH ×4 (08:53→20:21)
[2021-06-08] MEDS: CARBAMAZEPINE 200 MG TABLET PO SCH ×2 (08:53→20:34)
[2021-06-08 09:20] VITALS: BP 154/62
[2021-06-08 12:00] VITALS: BP 159/57
--- NOTE | 2021-06-08 13:00 | NUR ---
RN Note: Noted BS >400 repeated twice. Regular insulin 15 U given per sliding scale. Dr. Vogel notified, no new orders at this time. Will continue to monitor.
[2021-06-08 16:00] VITALS: BP 147/47
[2021-06-08] MEDS: ATORVASTATIN 40 MG TABLET PO SCH (20:41)
[2021-06-08] MEDS: ENOXAPARIN SODIUM 40 MG/0.4 ML DISP.SYRIN SQ SCH (20:42)
--- NOTE | 2021-06-08 20:44 | NUR ---
ANTICOAGULANT H/H Plt 238 No symptoms of bleeding. Lovenox injection given co-signed by KRISTIE Elizondo.
[2021-06-08] MEDS: MOMETASONE FUROATE NASAL SUSP 17 GM BOTTLE SCH (20:49)
[2021-06-08 21:03] VITALS: BP 179/68
[2021-06-08] MEDS: *INSULIN REGULAR(HUMULIN R)HUM 100 UNIT/ML VIAL SQ PRN (22:08)
--- NOTE | 2021-06-08 22:11 | NUR ---
ACCUCHECK Blood sugar 357mg/dl. Insulin per sliding scale and Lantus given, co-signed by KRISTIE Montgomery.
[2021-06-09] MEDS: methylPREDNISolone SOD SUCC 40 MG/ML VIAL IV SCH ×4 (00:30→21:59)
[2021-06-09] MEDS: ALBUTEROL FS 2.5 MG/3 ML VIAL.NEB NEB SCH ×6 (03:49→23:16)
[2021-06-09] MEDS: IPRATROPIUM NEB FS 0.5 MG/2.5 ML AMPUL.NEB NEB SCH ×6 (03:50→23:15)
[2021-06-09 06:00] VITALS: BP 154/64
[2021-06-09] MEDS: BLOOD SUGAR DIAGNOSTIC 1 EACH STRIP VI SCH (06:35)
[2021-06-09] MEDS: INSULIN REGULAR, HUMAN 100 UNIT/ML 3 ML VIAL SQ PRN ×4 (06:36→22:35)
--- NOTE | 2021-06-09 06:38 | NUR ---
ACCUCHECK Blood sugar 226mg/dl. Insulin per sliding scale given co-signed by KRISTIE Montgomery.
--- NOTE | 2021-06-09 06:52 | NUR ---
END OF SHIFT REPORT Patient is A/O x4. On Oxygen support 3L via NC, Oxygen sat in mid 90's. No c/o pain or discomfort. WILLIAMS midline intact. Afebrile. On Abx. Compliant with treatment. Will endorse to oncoming RN.
--- NOTE | 2021-06-09 07:16 | NUR ---
RN OPENING NOTE RECEIVED PATIENT RESTING IN BED. PATIENT IS A/O X4. PATIENT IS BREATHING EVENLY AND NONLABORED ON 3 LPM VIA NASAL CANNULA NO SIGNS OF DISTRESS AT THIS TIME. PATIENT DOES NOT COMPLAIN OF ANY PAIN AT THIS TIME. PATIENT HAS IV ACCESS LEFT UPPER ARM MIDLINE, PATENT AND INTACT. SAFETY MEASURES ARE IN PLACE BED LOW LOCKED AND CALL LIGHT WITHIN REACH. WILL CONTINUE TO MONITOR
[2021-06-09] MEDS: ACETYLCYSTEINE 10% SOLN 400 MG/4 ML VIAL NEB SCH ×3 (08:26→23:16)
[2021-06-09] MEDS: CHOLECALCIFEROL 1,000 UNIT TABLET (VIT D3) PO SCH (08:40)
[2021-06-09] MEDS: METHIMAZOLE (5MG) 5 MG TABLET PO SCH (08:40)
[2021-06-09] MEDS: POLYETHYLENE GLYCOL 3350 17 GM POWD.PACK PO SCH (08:40)
[2021-06-09] MEDS: FAMOTIDINE (20 MG) 20 MG TABLET PO SCH (08:41)
[2021-06-09] MEDS: MONTELUKAST SODIUM (10MG) 10 MG TABLET PO SCH (08:41)
[2021-06-09] MEDS: DOCUSATE SODIUM 100 MG CAPSULE PO SCH ×2 (08:41→16:04)
[2021-06-09] MEDS: ASPIRIN EC 81 MG TABLET.DR PO SCH (08:41)
[2021-06-09] MEDS: METOPROLOL TARTRATE 50 MG TABLET PO SCH ×2 (08:41→22:00)
[2021-06-09] MEDS: INSULIN GLARGINE, 100 UNIT/ML CARTRIDGE SQ SCH ×2 (08:41→22:34)
[2021-06-09] MEDS: LOSARTAN POTASSIUM 50 MG TABLET PO SCH (08:42)
[2021-06-09] MEDS: hydrALAZINE HCL 50 MG TABLET PO SCH ×3 (08:42→16:04)
[2021-06-09] MEDS: NIFEdipine XL (30MG) 30 MG TAB PO SCH (08:42)
[2021-06-09] MEDS: LEVOFLOXACIN (250MG) 250 MG TABLET PO SCH (08:42)
[2021-06-09] MEDS: GLUCERNA SHAKE 237 ML CAN PO SCH (08:44)
[2021-06-09] MEDS: POLYVINYL ALCOHOL 15 ML BOTTLE OP SCH ×4 (08:45→20:53)
[2021-06-09] MEDS ORDERED: INSULIN GLARGINE, 100 UNIT/ML CARTRIDGE SQ SCH (09:00)
[2021-06-09] MEDS ORDERED: DEXTROSE 50%-WATER 50 ML DISP.SYRIN IV PRN (09:00)
[2021-06-09] MEDS ORDERED: *INSULIN REGULAR(HUMULIN R)HUM 100 UNIT/ML VIAL SQ PRN (09:00)
[2021-06-09] MEDS ORDERED: INSULIN GLARGINE, 100 UNIT/ML CARTRIDGE SQ ONE (09:00)
[2021-06-09] MEDS ORDERED: NIFEdipine XL (30MG) 30 MG TAB PO ONE (09:00)
[2021-06-09] MEDS: CARBAMAZEPINE 200 MG TABLET PO SCH ×2 (09:13→22:00)
[2021-06-09 09:41] VITALS: BP 167/78
[2021-06-09] MEDS: BLOOD SUGAR DIAGNOSTIC 1 EACH STRIP IN SCH ×3 (11:00→22:31)
[2021-06-09 12:05] VITALS: BP 167/78
--- NOTE | 2021-06-09 18:32 | NUR ---
RN CLOSING NOTE PATIENT RESTING IN BED. PATIENT IS A/O X4. PATIENT IS BREATHING EVENLY AND NONLABORED ON 3 LPM VIA NASAL CANNULA NO SIGNS OF DISTRESS AT THIS TIME. PATIENT DOES NOT COMPLAIN OF ANY PAIN AT THIS TIME. PATIENT HAS IV ACCESS LEFT UPPER ARM MIDLINE, PATENT AND INTACT. ALL MEDICATIONS GIVEN ORDERED. SAFETY MEASURES ARE IN PLACE BED LOW LOCKED AND CALL LIGHT WITHIN REACH. WILL ENDORSE TO ONCOMING SHIFT
--- NOTE | 2021-06-09 19:30 | NUR ---
KRISTIE NOTE PT RECEIVED IN BED. PT IS ON 3L OF Addendum: 06/09/21 at 2218 by SAMIR VITAL RN ACCIDENTALLY CLICKED SAVE
--- NOTE | 2021-06-09 19:31 | NUR ---
RN NOTE PT RECEIVED IN BED. PT IS ON 3L OF O2 VIA NC SHOWING NO S/S OF RESP DISTRESS. PT IS A/OX3-4. DISCOLORATION NOTED ON BLE. PT ON CCHO DIET. LEFT UPPER ARM MIDLINE NOTED. LINE FLUSHED, PATENT, AND INTACT WITH NO SIGNS OF INFILTRATION. ALL SAFETY MEASURES IMPLEMENTED. CALL LIGHT WITHIN REACH. BED ALARM ON. BED LOCKED AND IN LOWEST POSITION. WILL CONTINUE TO MONITOR AND ASSESS FOR ANY CHANGES THROUGHOUT SHIFT.
[2021-06-09 20:00] VITALS: BP 143/58
[2021-06-09] MEDS: ENOXAPARIN SODIUM 40 MG/0.4 ML DISP.SYRIN SQ SCH (21:00)
--- NOTE | 2021-06-09 21:35 | NUR ---
RN NOTE PT REFUSING LOVENOX AT THIS TIME. EDUCATED PATIENT ON RISKS/BENEFITS OF LOVENOX, BUT PT STILL REFUSING. PT STATES SHE DOES NOT WANT INJECTION IN ABDOMEN.
[2021-06-09] MEDS: ATORVASTATIN 40 MG TABLET PO SCH (21:59)
--- NOTE | 2021-06-09 22:00 | NUR ---
RN NOTE SPOKE WITH DR. BEVERLY ABOUT PT'S SCHEDULED MEDICATION OF LOPRESSOR AND BP OF 143/58. DR. BEVERLY SAID OKAY TO ADMINISTER. ORDER NOTED AND CARRIED OUT.
[2021-06-09] MEDS: MOMETASONE FUROATE NASAL SUSP 17 GM BOTTLE SCH (22:26)
--- NOTE | 2021-06-09 22:35 | NUR ---
RN NOTES, RECEIVED PATIENT FROM GARETH FLOWERS FOR CONTINUATION OF CARE, PATIENT ON NC WITH OPTIMAL O2 SAT LEVEL, NO SOB/ACUTE DISTRESS NOTED, WILL CONTINUE TO MONITOR CLOSELY.
[2021-06-10] MEDS: IPRATROPIUM NEB FS 0.5 MG/2.5 ML AMPUL.NEB NEB SCH ×6 (03:52→23:32)
[2021-06-10] MEDS: ALBUTEROL FS 2.5 MG/3 ML VIAL.NEB NEB SCH ×6 (03:52→23:32)
[2021-06-10 04:00] VITALS: BP 152/57
[2021-06-10] MEDS: methylPREDNISolone SOD SUCC 40 MG/ML VIAL IV SCH ×3 (04:50→20:51)
--- NOTE | 2021-06-10 06:40 | NUR ---
RN NOTES PATIENT IN BED A/OX4, ABLE TO VERBALIZE NEEDS AND CONCERNS, AT 3LPM VIA NC WITH O2 >92%, NO SOB/ACUTE DISTRESS NOTED, PRN BREATHING TX PER RT, ALL NEEDS ATTENDED ALL SAFETY MEASURES IN PLACED, LOWEST LOCKED POSITION, CALL LIGHT WITHIN REACH, WILL ENDORSE CONTINUITY OF CARE TO ONCOMING NURSE.
--- NOTE | 2021-06-10 07:25 | NUR ---
RN OPENING NOTE PATIENT IN BED, RESTING, A&OX4. ON 3L NC WITH NO SIGNS OF LABORED BREATHING AT THIS TIME. LEFT UA MIDLINE IN PLACE AND PATENT. BED LOCKED AND IN LOWEST POSITION, CALL LIGHT WITHIN REACH, SIDE RAILS UP X3, ALL SAFETY MEASURES IMPLEMENTED.
[2021-06-10] MEDS: ACETYLCYSTEINE 10% SOLN 400 MG/4 ML VIAL NEB SCH ×3 (07:35→23:32)
[2021-06-10] MEDS: BLOOD SUGAR DIAGNOSTIC 1 EACH STRIP IN SCH ×4 (07:53→21:32)
[2021-06-10] MEDS: FAMOTIDINE (20 MG) 20 MG TABLET PO SCH (08:43)
[2021-06-10] MEDS: MONTELUKAST SODIUM (10MG) 10 MG TABLET PO SCH (08:43)
[2021-06-10] MEDS: DOCUSATE SODIUM 100 MG CAPSULE PO SCH ×2 (08:44→16:39)
[2021-06-10] MEDS: LOSARTAN POTASSIUM 50 MG TABLET PO SCH (08:44)
[2021-06-10] MEDS: POLYETHYLENE GLYCOL 3350 17 GM POWD.PACK PO SCH (08:44)
[2021-06-10] MEDS: CHOLECALCIFEROL 1,000 UNIT TABLET (VIT D3) PO SCH (08:44)
[2021-06-10] MEDS: METHIMAZOLE (5MG) 5 MG TABLET PO SCH (08:45)
[2021-06-10] MEDS: METOPROLOL TARTRATE 50 MG TABLET PO SCH ×2 (08:45→20:52)
[2021-06-10] MEDS: ASPIRIN EC 81 MG TABLET.DR PO SCH (08:46)
[2021-06-10] MEDS: CARBAMAZEPINE 200 MG TABLET PO SCH ×2 (08:46→20:52)
[2021-06-10] MEDS: NIFEdipine XL (30MG) 30 MG TAB PO SCH (08:46)
[2021-06-10] MEDS: hydrALAZINE HCL 50 MG TABLET PO SCH ×3 (08:46→16:39)
[2021-06-10] MEDS: INSULIN GLARGINE, 100 UNIT/ML CARTRIDGE SQ SCH ×2 (08:51→21:34)
[2021-06-10] MEDS: INSULIN REGULAR, HUMAN 100 UNIT/ML 3 ML VIAL SQ PRN ×3 (08:54→17:15)
[2021-06-10] MEDS: GLUCERNA SHAKE 237 ML CAN PO SCH (09:18)
[2021-06-10] MEDS: POLYVINYL ALCOHOL 15 ML BOTTLE OP SCH ×4 (09:18→20:53)
[2021-06-10] MEDS: ACETAMINOPHEN 325 MG TABLET PO PRN (09:34)
[2021-06-10 12:00] VITALS: BP 165/65
--- NOTE | 2021-06-10 18:36 | NUR ---
RN CLOSING NOTE PATIENT IN CHAIR, AWAKE AND ALERT. AMBULATED TO BATHROOM AND CHAIR THROUGHOUT THE DAY WITH MINIMUM ASSIST AND USE OF HER WALKER. A&OX4. L UA MIDLINE IN PLACE. 3L NC WITH NO SIGNS OF LABORED BREATHING. BED LOCKED AND IN LOWEST POSITION, CALL LIGHT WITHIN REACH, ALL SAFETY MEASURES IMPLEMENTED. WILL ENDORSE TO PAYROLL SUPERVISOR NURSE.
--- NOTE | 2021-06-10 19:40 | NUR ---
RN INITIAL NOTE, PATIENT IN CHAIR, A&OX4, WANTED TO USE BATHROOM AT THIS TIME, ASSISTANCE PROVIDED NEEDED, NO SOB/ACUTE DISTRESS NOTED, ON 3LPM VIA NC, WILLIAMS MIDLINE IN PLACE, PATENT AND INTACT, BED LOCKED AND IN LOWEST POSITION, CALL LIGHT WITHIN REACH, ALL SAFETY MEASURES IMPLEMENTED, WILL CONTINUE TO MONITOR CLOSELY.
[2021-06-10 20:00] VITALS: BP_SYST 158; BP_DIAS 55; BP_DIAS 65
[2021-06-10] MEDS: ENOXAPARIN SODIUM 40 MG/0.4 ML DISP.SYRIN SQ SCH (21:00)
[2021-06-10] MEDS: MOMETASONE FUROATE NASAL SUSP 17 GM BOTTLE SCH (21:05)
[2021-06-10] MEDS: ATORVASTATIN 40 MG TABLET PO SCH (21:07)
[2021-06-11] MEDS: ALBUTEROL FS 2.5 MG/3 ML VIAL.NEB NEB SCH ×3 (03:33→11:59)
[2021-06-11] MEDS: IPRATROPIUM NEB FS 0.5 MG/2.5 ML AMPUL.NEB NEB SCH ×3 (03:33→11:59)
[2021-06-11 04:00] VITALS: BP 145/67
[2021-06-11] MEDS: methylPREDNISolone SOD SUCC 40 MG/ML VIAL IV SCH (05:30)
--- NOTE | 2021-06-11 06:34 | NUR ---
RN NOTES, NO SIGNIFICANT CHANGE IN CONDITION DURING THE NIGHT, CONT ON 3LPM VIA NC, NO SOB/ACUTE DISTRESS NOTED, BREATHING TX ORDERED, LAST DOSE OF SOLU MEDROL ADMINISTERED AT 0500, ALL SAFETY MEASURES IMPLEMENTED, WILL ENDORSE CONTINUITY OF CARE TO ONCOMING NURSE
[2021-06-11] MEDS: BLOOD SUGAR DIAGNOSTIC 1 EACH STRIP IN SCH ×2 (07:23→11:58)
--- NOTE | 2021-06-11 07:58 | NUR ---
NURSE OPENING NOTE RECEIVE REPORT FROM OUT GOING NURSE. PATIENT IS STABLE AND COMFORTABLE. A/O X4. ON 3L OF OXYGEN VIA NC. MEDSURG MONITOR. MORNING BLOOD SUGAR 70MG/DL. GOAL IS TO MAINTAIN GLYCEMIC CONTROL. SAFETY MEASURE IN PLACE. CALL LIGHT WITH IN REACH. BED IN LOWEST POSITION WITH HOB ELEVATED 30 DEGREE. WILL CONTINUE TO MONITOR.
[2021-06-11] MEDS: ACETYLCYSTEINE 10% SOLN 400 MG/4 ML VIAL NEB SCH (08:00)
[2021-06-11] MEDS: CHOLECALCIFEROL 1,000 UNIT TABLET (VIT D3) PO SCH (08:23)
[2021-06-11] MEDS: DOCUSATE SODIUM 100 MG CAPSULE PO SCH (08:23)
[2021-06-11] MEDS: MONTELUKAST SODIUM (10MG) 10 MG TABLET PO SCH (08:23)
[2021-06-11] MEDS: ASPIRIN EC 81 MG TABLET.DR PO SCH (08:23)
[2021-06-11] MEDS: FAMOTIDINE (20 MG) 20 MG TABLET PO SCH (08:24)
[2021-06-11] MEDS: LEVOFLOXACIN (250MG) 250 MG TABLET PO SCH (08:24)
[2021-06-11] MEDS: LOSARTAN POTASSIUM 50 MG TABLET PO SCH (08:25)
[2021-06-11] MEDS: hydrALAZINE HCL 50 MG TABLET PO SCH ×2 (08:25→12:05)
[2021-06-11] MEDS: POLYETHYLENE GLYCOL 3350 17 GM POWD.PACK PO SCH (08:26)
[2021-06-11] MEDS: NIFEdipine XL (30MG) 30 MG TAB PO SCH (08:26)
[2021-06-11] MEDS: METHIMAZOLE (5MG) 5 MG TABLET PO SCH (08:34)
[2021-06-11] MEDS: INSULIN GLARGINE, 100 UNIT/ML CARTRIDGE SQ SCH (08:39)
[2021-06-11] MEDS: CARBAMAZEPINE 200 MG TABLET PO SCH (08:40)
[2021-06-11] MEDS: POLYVINYL ALCOHOL 15 ML BOTTLE OP SCH ×2 (08:46→12:08)
[2021-06-11] MEDS: GLUCERNA SHAKE 237 ML CAN PO SCH (09:00)
[2021-06-11] MEDS: INSULIN REGULAR, HUMAN 100 UNIT/ML 3 ML VIAL SQ PRN ×2 (09:08→12:01)
[2021-06-11] MEDS: METOPROLOL TARTRATE 50 MG TABLET PO SCH (10:27)
[2021-06-11 12:00] VITALS: BP 128/47
[2021-06-11] MEDS ORDERED: INFLUENZA VACCINE 2021-22 0.5 ML DISP.SYRIN IM ONE (12:00)
[2021-06-11 12:05] VITALS: BP 128/47
--- NOTE | 2021-06-11 16:00 | NUR ---
PATIENT REFUSED TO HAVE HER DISCHARGE PHOTO OF SKIN BLE TAKEN.
--- NOTE | 2021-06-11 16:01 | NUR ---
DAUGHTER NOTIFIED ABOUT THE DISCHARGE AND PATIENT AGREED WITH THE SNF PLACEMENT.
== END 2021-06-11 16:17 | DRG 189 ==
LOC: ER 17:50 → TELE1 22:44 → MEDSG1 23:48
PROVIDERS: ADMIT Nurse Practitioner Acute Care
PROC: 05HF33Z Insertion of Infusion Device into Left Cephalic Vein, Percutaneous Approach (ICD-10-PCS; principal; 2021-06-04)
DX: J96.20 Acute and chronic respiratory failure, unspecified whether with hypoxia or hypercapnia (principal); J45.901 Unspecified asthma with (acute) exacerbation; J44.1 Chronic obstructive pulmonary disease with (acute) exacerbation; L03.115 Cellulitis of right lower limb; L03.116 Cellulitis of left lower limb; E78.5 Hyperlipidemia, unspecified; E10.9 Type 1 diabetes mellitus without complications; E05.90 Thyrotoxicosis, unspecified without thyrotoxic crisis or storm; E03.9 Hypothyroidism, unspecified; Z20.822 Contact with and (suspected) exposure to COVID-19; I50.9 Heart failure, unspecified; I11.0 Hypertensive heart disease with heart failure; Z79.51 Long term (current) use of inhaled steroids; Z79.4 Long term (current) use of insulin; Z79.82 Long term (current) use of aspirin; Z79.899 Other long term (current) drug therapy; D72.829 Elevated white blood cell count, unspecified; R79.89 Other specified abnormal findings of blood chemistry; E87.5 Hyperkalemia; Z68.30 Body mass index [BMI] 30.0-30.9, adult; E66.9 Obesity, unspecified; R74.01 Elevation of levels of liver transaminase levels; E87.70 Fluid overload, unspecified; E86.0 Dehydration; G47.33 Obstructive sleep apnea (adult) (pediatric); I87.2 Venous insufficiency (chronic) (peripheral); T38.0X5A Adverse effect of glucocorticoids and synthetic analogues, initial encounter; Y92.9 Unspecified place or not applicable
CPT/HCPCS: 36415; 71045-TC; 80048-TC; 80061-TC; 80076-TC; 82945-TC; 82962-TC; 83605-TC; 83735-TC; 83880; 84100-TC; 84484-TC; 85025-TC; 85730-TC; 87040-TC; 87081-TC; 93307-TC; 94799-TC; 97110-TC; 97116-TC; 97530-TC; 97535-TC; A4216; C9803; G0378; J1650; J1815; J1940; J1956; J2920; J2930; J7050; Q2036; U0003